=== PATIENT | male | born 1965 | race Caucasian/White ===

== ENCOUNTER 2023-04-23 09:22 | Outpatient (CLI) | payer BC, SELFPAY | END 2023-04-23 09:23 | disposition home or self-care (01) | PROVIDERS: Visit Provider Emergency Medicine | DX: I10 Essential (primary) hypertension (principal); Z12.5 Encounter for screening for malignant neoplasm of prostate; Z13.6 Encounter for screening for cardiovascular disorders | CPT/HCPCS: 80053; 80061; G0103 ==

== ENCOUNTER 2023-05-19 19:11 | Outpatient (CLI) | payer BC, SELFPAY ==
--- NOTE | 2023-06-02 14:39 | ONC.NURNOTE ---
Nursing contacted patient to set up iron infusions, and he declined. PCP was notified by .
== END 2023-05-19 19:12 | disposition home or self-care (01) ==
LOC: LKVREF 19:13
PROVIDERS: Visit Provider Emergency Medicine
DX: K92.1 Melena (principal)
CPT/HCPCS: 82728

== ENCOUNTER 2023-11-12 08:23 | Outpatient (CLI) | payer BC, SELFPAY | END 2023-11-12 08:24 | disposition home or self-care (01) | PROVIDERS: PCP Physician Assistant Medical; Visit Provider Physician Assistant Medical | DX: I10 Essential (primary) hypertension (principal) | CPT/HCPCS: 84450; 84460 ==

== ENCOUNTER 2023-12-08 08:51 | Outpatient (CLI) | payer BC, SELFPAY | END 2023-12-08 08:52 | disposition home or self-care (01) | LOC: NFLDREF 12-11 13:06 | PROVIDERS: PCP Physician Assistant Medical; Referring Provider Physician Assistant Medical; Visit Provider Physician Assistant Medical | DX: I10 Essential (primary) hypertension (principal); B35.6 Tinea cruris; B35.1 Tinea unguium; Z48.02 Encounter for removal of sutures | CPT/HCPCS: 84450; 84460 ==